=== PATIENT | male | born 1945 | race Caucasian/White ===

== ENCOUNTER 2020-04-17 21:58 | Inpatient (IN) ==
[2020-04-18] MEDS ORDERED: ACETAMINOPHEN 325 MG TABLET PO PRN (01:33)
[2020-04-18] MEDS ORDERED: DEXTROSE 50% 25 GM/50 ML VIAL IV PRN (01:33)
[2020-04-18] MEDS ORDERED: GLUCAGON 1 MG VIAL IM PRN (01:33)
[2020-04-18] MEDS ORDERED: CYCLOBENZAPRINE 10 MG TABLET PO PRN (01:40)
[2020-04-18 02:40] LABS: Albumin 1.7 G/DL (3.4-5.0); Bilirubin,Total 0.9 MG/DL (0.2-1.0); Calcium 8.2 MG/DL (8.5-10.1); Osmolality,Calculated 264.9 MOS/KG (273-304); Total Protein 5.4 G/DL (6.4-8.3)
[2020-04-18] MEDS: ONDANSETRON 4 MG/2 ML VIAL IV PRN ×3 (02:40→22:03)
[2020-04-18 02:47] LABS: Thyroid Stimulating Hormone 5.45 uIU/ml (0.358-3.74)
[2020-04-18 02:57] LABS: Basophils % 0.5 % (0.0-0.8); Hematocrit 28.2 VOL% (42.0-52.0); Hemoglobin 9.7 GM/DL (14.0-18.0); Immature Granulocytes % 0.2 %; Immature Granulocytes Absolute 0.01 #; Lymphocytes # 1.6 10*3/uL (1.4-4.0); Lymphocytes % 38.6 % (21.2-54.2); Mean Corpuscular HGB Conc 34.4 GM/DL (32-36); Mean Corpuscular Volume 98.9 FL (87-102); Monocytes % 15.4 % (1.7-12.7); NRBC # 0.02 10*3/uL; Neutrophils % 45.3 % (38.7-73.9); Platelet Count 45 T/CUMM (130-400); Red Blood Count 2.85 MC/CUMM (3.8-5.5); White Blood Count 4.1 T/CUMM (4-12)
[2020-04-18] MEDS ORDERED: SODIUM CHLORIDE 0.9% 1,000 ML IV SCH (04:00)
[2020-04-18 04:25] LABS: Anisocytosis 1+; Lymphocytes 28 % (20-55); Segmented Neutrophils 56 % (50-85); Total Cells Counted 100
[2020-04-18 04:26] LABS: Platelet Estimate Decreased
[2020-04-18] MEDS: ALBUMIN 25% 25 GM in PREMIX 1 EACH IV SCH ×3 (04:40→21:13)
[2020-04-18 06:51] LABS: Albumin 2.2 G/DL (3.4-5.0); Bilirubin,Total 1.3 MG/DL (0.2-1.0); Calcium 8.3 MG/DL (8.5-10.1); Osmolality,Calculated 266.8 MOS/KG (273-304); Total Protein 5.4 G/DL (6.4-8.3)
[2020-04-18] MEDS ORDERED: MAGNESIUM SULF RIDER 2 GM in PREMIX 1 EACH IV PRN (06:55)
[2020-04-18] MEDS ORDERED: MAGNESIUM SULF RIDER 4 GM in PREMIX 1 EACH IV PRN (06:55)
[2020-04-18] MEDS ORDERED: PANTOPRAZOLE 40 MG TABLET PO SCH (09:00)
[2020-04-18] MEDS: PROMETHAZINE 25 MG TABLET PO SCH (10:23)
[2020-04-18] MEDS ORDERED: FUROSEMIDE 40 MG/4 ML VIAL IV ONE (11:05)
[2020-04-18 11:44] LABS: Apearance,Urine CLEAR (Clear); Bacteria,Urine Occasional /HPF (Few); Bilirubin,Urine Negative (Negative); Blood, Urine Small mg/dL (Negative); Glucose,Urine (UA) Negative (Negative); Hyaline Casts,Urine 5 /LPF (0-3); Ketones,Urine Negative (Negative); Mucus,Urine Occasional /LPF (Occasional); Nitrite,Urine Negative (Negative); Protein,Urine Negative; RBC,Urine 2 /HPF (0-4); Urine Color Yellow (Yellow); Urine Urobilinogen < 2.0 EU/DL (0.2-1.0); WBC,Urine 1 /HPF (0-6)
[2020-04-19] MEDS: ALBUMIN 25% 25 GM in PREMIX 1 EACH IV SCH ×3 (04:13→21:09)
[2020-04-19 07:02] LABS: Basophils % 0.4 % (0.0-0.8); Eosinophils % 0.4 % (0.00-10.9); Hematocrit 22.1 VOL% (42.0-52.0); Immature Granulocytes % 0.4 %; Immature Granulocytes Absolute 0.01 #; Lymphocytes # 1.3 10*3/uL (1.4-4.0); Lymphocytes % 49.8 % (21.2-54.2); Mean Corpuscular HGB Conc 33.5 GM/DL (32-36); Mean Corpuscular Volume 102.8 FL (87-102); Mean Platelet Volume 10.5 FL (9.6-12.0); Monocytes % 18.6 % (1.7-12.7); Neutrophils % 30.4 % (38.7-73.9); Red Cell Distribution Width 20.5 % (9.3-17.3)
[2020-04-19 07:21] LABS: Hemoglobin 7.4 GM/DL (14.0-18.0); Platelet Count 48 T/CUMM (130-400); Red Blood Count 2.15 MC/CUMM (3.8-5.5); White Blood Count 2.6 T/CUMM (4-12)
[2020-04-19 07:25] LABS: Albumin 2.8 G/DL (3.4-5.0); Bilirubin,Total 1.6 MG/DL (0.2-1.0); Calcium 8.5 MG/DL (8.5-10.1); Osmolality,Calculated 266.7 MOS/KG (273-304); Total Protein 5.5 G/DL (6.4-8.3)
[2020-04-19 07:27] LABS: Atypical Lymphocytes Few; Eosinophils 1 % (0-10); Hypochromasia 1+; Lymphocytes 35 % (20-55); Platelet Estimate Decreased; Segmented Neutrophils 42 % (50-85); Total Cells Counted 100
[2020-04-19 07:28] LABS: Microcytosis 1+; Ovalocytes Slight
[2020-04-19] MEDS ORDERED: SODIUM CHLORIDE 0.9% 1,000 ML IV PRN ×3 (07:45→11:20)
[2020-04-19 08:42] LABS: % Iron Saturation 54.2 % (18-50); Ferritin 876.6 ng/ml (26-388)
[2020-04-19 08:46] LABS: INR 1.4; PT Patient Result 15.1 SECS (9.8-11.9)
[2020-04-19] MEDS ORDERED: hydrALAZINE 20 MG/1 ML VIAL IV PRN (10:35)
[2020-04-19 10:37] LABS: Basophils % 0.7 % (0.0-0.8); Eosinophils % 0.4 % (0.00-10.9); Hematocrit 24.2 VOL% (42.0-52.0); Hemoglobin 8.1 GM/DL (14.0-18.0); Immature Granulocytes % 0.4 %; Immature Granulocytes Absolute 0.01 #; Lymphocytes # 1.3 10*3/uL (1.4-4.0); Lymphocytes % 44.8 % (21.2-54.2); Mean Corpuscular HGB Conc 33.5 GM/DL (32-36); Mean Corpuscular Volume 102.1 FL (87-102); Mean Platelet Volume 9.1 FL (9.6-12.0); Neutrophils % 32.7 % (38.7-73.9); Platelet Count 53 T/CUMM (130-400); Red Blood Count 2.37 MC/CUMM (3.8-5.5); Red Cell Distribution Width 20.7 % (9.3-17.3); White Blood Count 2.8 T/CUMM (4-12)
[2020-04-19 11:06] LABS: Eosinophils 1 % (0-10); Hypochromasia 1+; Lymphocytes 34 % (20-55); Microcytosis Slight; Platelet Estimate Decreased; Segmented Neutrophils 50 % (50-85); Total Cells Counted 100
[2020-04-19 11:07] LABS: Atypical Lymphocytes Few
[2020-04-19] MEDS: PROMETHAZINE 25 MG TABLET PO SCH (11:21)
[2020-04-19] MEDS ORDERED: TISSUE ADHESIVE 1 EACH APPLICATOR TOP ONE (15:36)
[2020-04-20] MEDS: ALBUMIN 25% 25 GM in PREMIX 1 EACH IV SCH (04:28)
[2020-04-20 05:27] LABS: Basophils % 0.3 % (0.0-0.8); Eosinophils % 0.7 % (0.00-10.9); Hemoglobin 10.2 GM/DL (14.0-18.0); Immature Granulocytes % 0.3 %; Immature Granulocytes Absolute 0.01 #; Lymphocytes # 1.4 10*3/uL (1.4-4.0); Lymphocytes % 47.9 % (21.2-54.2); Mean Corpuscular Volume 96.8 FL (87-102); Mean Platelet Volume 9.1 FL (9.6-12.0); Monocytes % 21.4 % (1.7-12.7); Neutrophils % 29.4 % (38.7-73.9); Platelet Count 60 T/CUMM (130-400); White Blood Count 2.9 T/CUMM (4-12)
[2020-04-20] MEDS: ONDANSETRON 4 MG/2 ML VIAL IV PRN (05:28)
[2020-04-20 05:46] LABS: Albumin 2.9 G/DL (3.4-5.0); Bilirubin,Total 3.1 MG/DL (0.2-1.0); Calcium 8.3 MG/DL (8.5-10.1); Osmolality,Calculated 270.2 MOS/KG (273-304); Total Protein 5.4 G/DL (6.4-8.3)
[2020-04-20 06:09] LABS: Eosinophils 5 % (0-10); Lymphocytes 29 % (20-55); Segmented Neutrophils 48 % (50-85); Total Cells Counted 100
[2020-04-20 06:10] LABS: Anisocytosis 1+; Atypical Lymphocytes Few; Hypochromasia 1+; Microcytosis 1+; Smudge Cells Few
[2020-04-20 06:11] LABS: Ovalocytes Slight; Platelet Estimate Decreased; Polychromasia Slight
[2020-04-20] MEDS: PROMETHAZINE 25 MG TABLET PO SCH (09:35)
[2020-04-20] MEDS ORDERED: HEPARIN LOCK FLUSH 500 UNIT/5 ML SYRINGE IV ONE ×2 (09:50→09:51)
[2020-04-20 10:03] VITALS: BP 152/76
== END 2020-04-20 10:14 | disposition home or self-care (01) | DRG 682 ==
LOC: SUATTDRO 23:16 → N.4E 23:16
PROVIDERS: ADMIT Internal Medicine Critical Care Medicine; ATTEND Internal Medicine